=== PATIENT | female | born 1965 | race Caucasian/White ===

== ENCOUNTER 2017-09-28 10:16 | Day surgery (SDC) | payer BC ==
[2017-09-24 11:57] VITALS: BMI 28.3
[2017-09-28] MEDS ORDERED: Propofol 10 mg/ml Inj (20 ML) ONE (12:41)
[2017-09-28] MEDS ORDERED: Midazolam 2 MG/2 ML VIAL ONE (12:41)
[2017-09-28] MEDS ORDERED: HYDROmorphone 0.5 mg/0.5 ml ISec IVP PRN (13:31)
--- NOTE | 2017-09-28 13:35 | PCM.SURG1 ---
Surgeon's Initial Post Op Note - Surgeon's Notes Surgeon: Dr. Correa Front Desk Auxiliary: None Type of Anesthesia: General LMA Anesthesia Administered By: Dr. Pagan Pre-Operative Diagnosis: 52 yo Endometrial Polyp, Submucous leiomyoma, Thickened endometrium , Postmenopausal Bleeding Operative Findings: AV uterus , 8-10 Post-Operative Diagnosis: Same as above Operation Performed: Hysteroscopy Myosure D and C Specimen/Specimens Removed: endometrial polyp, Fibroid uterus , ECC, EMC Estimated Blood Loss: EBL {In ML}: 5 Blood Products Given: N/A Drains Used: No Drains Post-Op Condition: Good Date of Surgery/Procedure: 09/28/17 Time of Surgery/Procedure: 13:36
[2017-09-28 14:44] VITALS: BP 124/76; PULSE 84; RESP 18; TEMP 97; O2SAT 98
--- NOTE | 2017-09-29 07:03 | OP ---
PROCEDURE DATE: 09/28/2017 PREOPERATIVE DIAGNOSES: This is a 52-year-old female with endometrial polyp, submucosal leiomyoma, and thickened endometrium. POSTOPERATIVE DIAGNOSES: This is a 52-year-old female with endometrial polyp, submucosal leiomyoma, and thickened endometrium. PROCEDURE: Hysteroscopy, MyoSure, myomectomy, dilatation and curettage. SURGEON: Mirela Correa MD TYPE OF ANESTHESIA: General LMA. FINDINGS: Anteverted uterus noted to have an endometrial polyp, as well as submucosal leiomyoma. COMPLICATIONS: None. ESTIMATED BLOOD LOSS: Approximately 5 mL. INPUTS AND OUTPUTS: 100 mL. SPECIMENS: EMC, ECC, polyp and fibroid. DESCRIPTION OF PROCEDURE: The patient was informed of the risks factors, benefits, and alternatives of the procedure. Risk factors included infection, bleeding, damage to the surrounding organs and tissues, complication from anesthesia and possible . After informed consent was obtained, she was then taken to the operating room, prepped and draped in a normal sterile fashion, placed in a dorsal lithotomy position. A weighted speculum was placed into the vagina. The anterior lip of the cervix was grasped with a single-toothed tenaculum. The uterus was gently sounded to approximately 10 cm. Upon completing uterine dilation, the scope was then placed. A complete visualization of the cavity was noted. Noted that she had an endometrial polyp, as well as submucosal leiomyoma. The REACH MyoSure device was then utilized in order to remove endometrial polyp under direct visualization. Vaginal myomectomy was performed with MyoSure device and submucosal leiomyoma was removed and submitted to Pathology. Upon completion, the instruments were removed from the vagina and the fractional D and C was then performed. EMC and ECC were submitted to Pathology. The scope was reintroduced making sure there were no areas of perforation. Upon completion, all instruments were removed from the vagina. Instrument and lap count were correct x2. The patient was then taken to the recovery room in stable condition, and instructed to follow up in the office in approximately 2 weeks. Mirela Correa MD
== END 2017-09-28 14:59 | disposition home or self-care (01) ==
LOC: C.SDS 10:16
PROVIDERS: ATTEND Obstetrics & Gynecology
DX: N85.00 Endometrial hyperplasia, unspecified (principal); N95.0 Postmenopausal bleeding; D25.0 Submucous leiomyoma of uterus
CPT/HCPCS: 58561; 88305; J2250; J2704; J3010